=== PATIENT | male | born 1975 | race Caucasian/White ===

== ENCOUNTER 2019-10-04 23:25 | Emergency (ER) | payer OTHER ==
[~2019-10-04] VITALS: Ht 177.8 cm; Wt 95.3 kg
[2019-10-04] MEDS ORDERED: CARVEDILOL12.5 MG PO (23:37)
[2019-10-04] MEDS ORDERED: LISINOPRIL-HCT1 EACH PO (23:37)
[2019-10-05 00:30] VITALS: BP 134/95
[2019-10-05] MEDS ORDERED: KEFLEX500 M1 PO (00:37)
== END 2019-10-05 00:54 | disposition home or self-care (01) ==
LOC: M.ERS 23:25
DX: S61.411A Laceration without foreign body of right hand, initial encounter (principal); I10 Essential (primary) hypertension; Z91.013 Allergy to seafood; W26.0XXA Contact with knife, initial encounter; Y93.89 Activity, other specified; Y92.89 Other specified places as the place of occurrence of the external cause; Y99.8 Other external cause status

== ENCOUNTER 2020-04-03 08:38 | Emergency (ER) | payer OTHER ==
[~2020-04-03] VITALS: Ht 180.3 cm; Wt 90.7 kg
[~2020-04-03 08:38] MED LIST: CARVEDILOL12.5 MG PO; KEFLEX500 M1 PO; LISINOPRIL-HCT1 EACH PO
[2020-04-03 09:42] VITALS: BP 121/91
== END 2020-04-03 09:43 | disposition home or self-care (01) ==
LOC: M.ERS 08:38
DX: B34.9 Viral infection, unspecified (principal); Z20.828 Contact with and (suspected) exposure to other viral communicable diseases; I10 Essential (primary) hypertension; Z79.899 Other long term (current) drug therapy; Z91.013 Allergy to seafood